=== PATIENT | male | born 1975 | race Two or more races ===

== ENCOUNTER 2019-08-14 19:26 | Emergency (ER) | payer MEDICAID ==
[~2019-08-14] VITALS: Ht 175.3 cm; Wt 77.1 kg
--- NOTE | 2019-08-14 20:14 | NUR ---
XRAY AT BEDSIDE
[2019-08-14] MEDS ORDERED: IBUPROFEN 800 MG TABLET PO ONE (20:15)
[2019-08-14] MEDS ORDERED: IBUPROFEN 800 MG TABLET ONE (20:15)
[2019-08-14] MEDS ORDERED: HYDROCODONE/APAP 10-325 MG TABLET ONE (20:44)
[2019-08-14] MEDS ORDERED: HYDROCODONE/APAP 10-325 MG TABLET PO ONE (20:45)
--- NOTE | 2019-08-14 21:08 | NUR ---
Patient given written and verbal discharge instructions. Patient verbalizes understanding of instructions. Patient is ambulatory with steady gait. Refuses offer of [facility] placement. Patient given list of available shelters in surrounding area. Patient will arrange own transportation to [facility]. refused all other services at this time.
[2019-08-14 21:10] VITALS: BP 123/79
== END 2019-08-14 21:11 | disposition home or self-care (01) ==
LOC: ER 19:31
PROC: 2W39X1Z Immobilization of Left Upper Extremity using Splint (ICD-10-PCS; principal; 2019-08-14)
DX: S42.032A Displaced fracture of lateral end of left clavicle, initial encounter for closed fracture (principal); X58.XXXA Exposure to other specified factors, initial encounter; Y92.9 Unspecified place or not applicable; S43.102A Unspecified dislocation of left acromioclavicular joint, initial encounter
CPT/HCPCS: 73030; A4663